=== PATIENT | male | born 1980 | race Hispanic/Latino ===

== ENCOUNTER 2017-07-25 08:44 | Emergency (ER) | payer MEDICAID ==
[~2017-07-25 08:44] MED LIST: DOXY100C2 PO; GLIP10TA9 PO; METF500T6 PO
== END 2017-07-25 09:18 | disposition home or self-care (01) ==
LOC: EDH 08:44
DX: R05 Cough (principal); E11.9 Type 2 diabetes mellitus without complications; I10 Essential (primary) hypertension; Z79.4 Long term (current) use of insulin; Z89.421 Acquired absence of other right toe(s)
CPT/HCPCS: 99281

== ENCOUNTER 2018-01-05 10:49 | Emergency (ER) | payer MEDICAID ==
[2018-01-05] MEDS ORDERED: DEXTROSE 50%-WATER 50 ML DISP.SYRIN IV ONE ×2 (11:14→11:52)
[2018-01-05] MEDS ORDERED: LIDOCAINE/PRILOCAINE CREAM 5GM TUBE TP ONE (12:14)
[2018-01-05] MEDS ORDERED: HYDROCODONE/ACETAMINOPHEN 10/325 MG TAB ONE (12:38)
[2018-01-05] MEDS ORDERED: FLUCONAZOLE 100 MG TAB ONE (14:26)
== END 2018-01-05 14:35 | disposition home or self-care (01) ==
LOC: EDH 10:49
DX: N48.1 Balanitis (principal); N47.2 Paraphimosis; I10 Essential (primary) hypertension; E11.9 Type 2 diabetes mellitus without complications
CPT/HCPCS: 96374; 99284; J3490; J7070 ×2

== ENCOUNTER 2019-05-09 20:47 | Inpatient (IN) | payer MEDICAID ==
[~2019-05-09] VITALS: Ht 180.3 cm; Wt 140.0 kg
[~2019-05-09 20:47] MED LIST changes: +METF-444 PO; -METF500T6 PO
[2019-05-09] MEDS ORDERED: IBUPROFEN 600 MG TABLET ONE (21:13)
[2019-05-09] MEDS ORDERED: SODIUM CHLORIDE 0.9% 1000ML 1,000 ML IV ONE (21:44)
[2019-05-09 21:48] LABS: BASOPHILS % (AUTO) 0.7 % (0.0-5.0); EOSINOPHILS % (AUTO) 3.1 % (0.0-8.0); HEMATOCRIT 45.1 % (42-54); LYMPHOCYTES % (AUTO) 17.8 % (21.0-51.0); MEAN CORPUSCULAR HEMOGLOBIN 30.6 pg (27.0-33.0); MEAN CORPUSCULAR HGB CONC 34.3 g/dL (32.0-36.0); MEAN CORPUSCULAR VOLUME 89.3 fL (79-99); MONOCYTES % (AUTO) 10.7 % (3.0-13.0); NEUTROPHILS % (AUTO) 67.7 % (40.0-77.0); PLATELET COUNT (AUTO) 134 K/uL (130-400); RED BLOOD CELL COUNT(AUTO) 5.05 MIL/uL (4.50-6.20); RED CELL DISTRIBUTION WIDTH 13.2 % (11.0-15.5); WHITE BLOOD COUNT (AUTO) 7.8 K/uL (4.8-10.8)
[2019-05-09 22:01] LABS: INR 0.95 (0.85-1.15); PARTIAL THROMBOPLASTIN TIME 26.8 SEC (26.3-35.5)
[2019-05-09 22:02] LABS: CREATININE 1.2 mg/dL (0.5-1.5); POTASSIUM 4.3 mmol/L (3.5-5.1)
[2019-05-09 22:06] LABS: ALBUMIN 3.4 g/dL (3.5-5.0); BILIRUBIN,TOTAL 0.4 mg/dL (0.2-1.0); CRP QUANTITATIVE 17.7 mg/L (0.00-9.0); TOTAL PROTEIN, SERUM 7.3 g/dL (6.0-8.3)
[2019-05-09 22:51] LABS: ERYTHROCYTE SEDIMENTATION RATE 13 MM/HR (0-15)
[2019-05-09] MEDS ORDERED: VANCOMYCIN 1GM+NS 250ML 250 ML IV SCH (23:00)
[2019-05-09 23:09] LABS: APPEARANCE,URINE Clear (CLEAR); BILIRUBIN,URINE Negative (NEGATIVE); COLOR,URINE Yellow (YELLOW); GLUCOSE, URINE (UA) >=1000 mg/dL (NEGATIVE); KETONES,URINE Negative (NEGATIVE); LEUKOCYTE ESTERASE ,URINE Negative (NEGATIVE); NITRATE,URINE Negative (NEGATIVE); OCCULT BLOOD,URINE Trace (NEGATIVE); PROTEIN,URINE Negative (NEGATIVE)
[2019-05-09] MEDS ORDERED: VANCOMYCIN 1GM+NS 250ML 250 ML IV ONE (23:11)
[2019-05-09 23:22] LABS: BACTERIA,URINE None Seen /HPF (None Seen); RBC,URINE None Seen /HPF (0-1); WBC,URINE None Seen /HPF (0-1)
[2019-05-10] MEDS ORDERED: GLUCAGON 1MG KIT 1 MG ML IM PRN (00:45)
[2019-05-10] MEDS ORDERED: ZOSYN 3.375GM+NS 50ML 50 ML IV SCH (00:45)
[2019-05-10] MEDS ORDERED: ONDANSETRON ODT 4 MG TAB PO PRN (00:45)
[2019-05-10] MEDS ORDERED: ACETAMINOPHEN 325 MG TAB PO PRN (00:45)
[2019-05-10] MEDS ORDERED: VANCOMYCIN PROTOCOL PER PHARMACY IV SCH (00:45)
[2019-05-10] MEDS ORDERED: DEXTROSE 50%-WATER 50 ML DISP.SYRIN IV PRN (00:45)
[2019-05-10] MEDS ORDERED: VANCOMYCIN 1GM+NS 250ML 250 ML IV SCH (01:00)
[2019-05-10] MEDS ORDERED: INSULIN HUMULIN R 100 UNIT/ML 3ML ONE (02:23)
[2019-05-10 02:53] VITALS: BP 158/93
[2019-05-10 04:35] LABS: HEMATOCRIT 40.8 % (42-54); MEAN CORPUSCULAR HEMOGLOBIN 31.1 pg (27.0-33.0); MEAN CORPUSCULAR HGB CONC 34.6 g/dL (32.0-36.0); PLATELET COUNT (AUTO) 106 K/uL (130-400); RED BLOOD CELL COUNT(AUTO) 4.53 MIL/uL (4.50-6.20); RED CELL DISTRIBUTION WIDTH 13.1 % (11.0-15.5); WHITE BLOOD COUNT (AUTO) 7.6 K/uL (4.8-10.8)
[2019-05-10 04:49] LABS: CREATININE 1.1 mg/dL (0.5-1.5); MAGNESIUM 1.9 mg/dL (1.80-2.40); POTASSIUM 3.8 mmol/L (3.5-5.1)
[2019-05-10] MEDS: INSULIN R PO SS1 SQ SCH ×3 (07:36→17:58)
[2019-05-10 07:39] VITALS: BP 133/81
[2019-05-10] MEDS ORDERED: COMPOUND IV REFRIGERATED 1 EACH IVSOLN MISC PRN (07:45)
--- NOTE | 2019-05-10 08:21 | NUR ---
Reviewed contraindications for MRI with contrast. Consent reviewed and signed. Per patient, has had MRI done before, no reactions to contrast noted.
[2019-05-10] MEDS ORDERED: GADODIAMIDE 10 MMOL/20 ML VIAL IV ONE (09:09)
[2019-05-10] MEDS: VANCOMYCIN 2 GM in SODIUM CHLORIDE 0.9% 500ML 500 ML IV SCH ×2 (10:34→22:37)
[2019-05-10 12:00] VITALS: BP 158/98
--- NOTE | 2019-05-10 13:30 | NUR ---
Notified [facility] of wound care consult for Rt foot
[2019-05-10] MEDS: ZOSYN 3.375GM+NS 50ML 50 ML IV SCH ×2 (15:06→22:36)
--- NOTE | 2019-05-10 15:14 | NUR ---
[facility] CONSULT PATIENT ASSESSED REQUESTED: PATIENT PRESENTS WITH DIABETIC FOOT ULCER TO RIGHT 4TH TOE, AND VENOUS ULCER TO LEFT LEG MEDIAL; [facility] RECOMMENDATIONS SUBMITTED. Addendum: 05/10/19 at 1516 by RAYSA DORSEY LVN LVN W Amended: Links added.
[2019-05-10 16:00] VITALS: BP 142/84
--- NOTE | 2019-05-10 17:05 | NUR ---
INITIAL MET W PATIENT FOR DC PLANNING, ALONE, AAOX3, LIVES W [facility] WHO WILL PROVIDE TRANSPORT HOME; PT IS INDP, DDRIVES, NO DME, SEES [facility] FOSTER, PMD, HAS BEEN DISABLED SECOND TO DM DCP IS HOME; WILL AWAIT DC PLANNING RE: POSS NEED FOR IV ABX. IF WOUND CARE NEEDED WILL ANTICIPATE NEED TO TEACH FAMILY. DCP HOME Addendum: 05/11/19 at 1741 by JARET ALVES RN Amended: Links added.
[2019-05-10 20:00] VITALS: BP 143/92
[2019-05-11] VITALS (27 sets, daily range): BP systolic 99–170; BP diastolic 65–95
[2019-05-11] MEDS: INSULIN R PO SS1 SQ SCH ×5 (00:06→21:11)
[2019-05-11] MEDS: ZOSYN 3.375GM+NS 50ML 50 ML IV SCH ×3 (04:13→21:13)
[2019-05-11] MEDS ORDERED: LIDOCAINE HCL 1% 20 ML VIAL ONE (12:05)
[2019-05-11] MEDS ORDERED: BUPIVACAINE/PF 0.5% 30ML VIAL ONE (12:05)
[2019-05-11] MEDS ORDERED: SODIUM CHLORIDE 0.9% 1000ML 1,000 ML IV ONE (12:42)
[2019-05-11] MEDS ORDERED: MIDAZOLAM HCL 1 MG/ML 2ML VIAL ONE (13:13)
[2019-05-11] MEDS ORDERED: FENTANYL CITRATE PF 50 MCG/1 ML 2ML VIAL ONE (13:14)
[2019-05-11] MEDS ORDERED: PROPOFOL 10 MG/ML 20ML VIAL IV ONE (13:14)
[2019-05-11] MEDS: VANCOMYCIN 1.75 GM in SODIUM CHLORIDE 0.9% 250 ML IV SCH ×2 (17:31→21:13)
[2019-05-11] MEDS: HYDROMORPHONE HCL 0.5 MG/0.5 ML ML IVP PRN (21:14)
[2019-05-12 03:57] VITALS: BP 140/77
[2019-05-12] MEDS: ZOSYN 3.375GM+NS 50ML 50 ML IV SCH ×2 (05:01→12:16)
[2019-05-12] MEDS: VANCOMYCIN 1.75 GM in SODIUM CHLORIDE 0.9% 250 ML IV SCH ×2 (05:02→13:58)
[2019-05-12] MEDS: MORPHINE SULFATE 2 MG/ML 1ML SYG IVP PRN ×2 (05:10→17:51)
[2019-05-12] MEDS: INSULIN R PO SS1 SQ SCH ×4 (06:11→21:04)
[2019-05-12 07:30] VITALS: BP 134/77
[2019-05-12] MEDS: HYDROMORPHONE HCL 0.5 MG/0.5 ML ML IVP PRN ×3 (09:08→21:04)
[2019-05-12 11:00] VITALS: BP 150/98
[2019-05-12 16:00] VITALS: BP 146/91
[2019-05-12] MEDS: CEFAZOLIN SODIUM 1 GM VIAL IVP SCH ×2 (17:02→23:16)
[2019-05-12 19:20] VITALS: BP 158/84
--- NOTE | 2019-05-12 23:55 | NUR ---
DR. Mccann rounded: Seen and examined pt. Dr. Mccann did the wound care. Customer Service Manager took a photo of the wound and attached to chart. No new orders given.
[2019-05-13] VITALS: BP 155/87
[2019-05-13 04:00] VITALS: BP 124/83
[2019-05-13] MEDS: CEFAZOLIN SODIUM 1 GM VIAL IVP SCH ×3 (06:25→23:03)
[2019-05-13] MEDS: INSULIN R PO SS1 SQ SCH ×4 (06:29→21:35)
[2019-05-13 07:52] VITALS: BP 152/100
[2019-05-13] MEDS: HYDROMORPHONE HCL 0.5 MG/0.5 ML ML IVP PRN ×4 (08:55→20:18)
[2019-05-13 11:00] VITALS: BP 142/90
[2019-05-13 15:50] VITALS: BP 122/67
[2019-05-13 20:06] VITALS: BP 147/87
[2019-05-14 00:07] VITALS: BP 159/95
[2019-05-14 04:00] VITALS: BP 132/73
[2019-05-14 04:58] LABS: MEAN CORPUSCULAR HEMOGLOBIN 30.2 pg (27.0-33.0); MEAN CORPUSCULAR HGB CONC 33.7 g/dL (32.0-36.0); MEAN CORPUSCULAR VOLUME 89.7 fL (79-99); NUCLEATED RED BLOOD CELLS 0.1 % (0.0-0.19); PLATELET COUNT (AUTO) 129 K/uL (130-400); RED BLOOD CELL COUNT(AUTO) 4.68 MIL/uL (4.50-6.20); WHITE BLOOD COUNT (AUTO) 5.7 K/uL (4.8-10.8)
--- NOTE | 2019-05-14 05:00 | NUR ---
DR. DAVILA ROUNDED: Seen and examined pt. Wound care done and dressing changed. No new orders given.
[2019-05-14] MEDS: HYDROMORPHONE HCL 0.5 MG/0.5 ML ML IVP PRN ×2 (05:22→09:28)
[2019-05-14 05:43] LABS: ALBUMIN 2.9 g/dL (3.5-5.0); BILIRUBIN,TOTAL 0.4 mg/dL (0.2-1.0); CREATININE 0.9 mg/dL (0.5-1.5); POTASSIUM 4.3 mmol/L (3.5-5.1); TOTAL PROTEIN, SERUM 6.7 g/dL (6.0-8.3)
[2019-05-14] MEDS: CEFAZOLIN SODIUM 1 GM VIAL IVP SCH ×2 (06:23→15:55)
[2019-05-14] MEDS: INSULIN R PO SS1 SQ SCH ×3 (06:24→16:11)
[2019-05-14 07:54] VITALS: BP 126/83
[2019-05-14 11:58] VITALS: BP 147/95
--- NOTE | 2019-05-14 15:24 | NUR ---
RD NOTIFICATION Dx: Diabetic Wound and Cellulitis to Right foot. Hx: DM, HTN, Obesity. Diet: 75gmCCD. S/P toe amputation. No edema noted, pt with right foot ulcer/ cellulitis, toe amputation. PO intake 100% and has good appetite as per pt. LBM: 05/13. Pt stated he follows DM diet at home and is on a weight loss diet regimen. Pt has lost 43# in the past two months with diet changes and increasing physical activity. Pt is familiar with foods to avoid/ recommended for his DM condition. 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 RD provided DM diet and nutrition education. Pt verbalized understanding. Education materials provided. RD recommend continue current diet, Add Morro BID to diet order. Recommend 220mg Zinc Sulfate once daily for 14 days and 500mg Vitamin C twice daily to aid in wound healing. RD provided DM diet and nutrition medical nutrition therapy. Materials provided. RD will follow up as needed. Thank you. Gisella Johnson MS, RDN Addendum: 05/14/19 at [address] RD Amended: Links added.
--- NOTE | 2019-05-14 15:25 | NUR ---
DIET EDUCATION Pt stated he follows DM diet at home and is on a weight loss diet regimen. Pt has lost 43# in the past two months with diet changes and increasing physical activity. Pt is familiar with foods to avoid/ recommended for his DM condition. 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 MARY ELLEN provided DM diet and nutrition education. Pt verbalized understanding. Education materials provided. Addendum: 05/14/19 at [address] RD Amended: Links added.
[2019-05-14 16:00] VITALS: BP 152/62
--- NOTE | 2019-05-14 18:25 | NUR ---
PATIENT GIVEN DISCHARGE INSTRUCTIONS AND VERBALIZED UNDERSTANDING , IV REMOVED WITH CATHETER INTACT PRESSURE HELD ON SITE THEN SITE DRESSED, REVIEWED FOLLOW-UP APPOINTMENTS TIME AND DATES,INSTRUCTED PATIENT ON WOUND DRESSED AND SUPPLIES GIVEN FOR DRESSING CHANGES DAILY AND PRN. NO QUESTIONS OR CONCERNS AT THIS TIME, PATIENT ASKING TO WALK DOWN TO LOBBY WITH STAFF ( REFUSED WHEELCHAIR) PATIENT LEFT FOR HOME
== END 2019-05-14 18:20 | disposition home or self-care (01) | DRG 305 ==
LOC: EDH 20:47 → EDHIP 20:48 → OBSVTOIN 20:48 → 3AH 05-10 02:14
PROVIDERS: ADMIT Internal Medicine Infectious Disease; ATTEND Internal Medicine Infectious Disease
PROC: 0Y6M0ZD Detachment at Right Foot, Partial 4th Ray, Open Approach (ICD-10-PCS; principal; 2019-05-11 13:21)
DX: E11.69 Type 2 diabetes mellitus with other specified complication (principal); E11.51 Type 2 diabetes mellitus with diabetic peripheral angiopathy without gangrene; M86.8X7 Other osteomyelitis, ankle and foot; L03.115 Cellulitis of right lower limb; L97.519 Non-pressure chronic ulcer of other part of right foot with unspecified severity; B95.4 Other streptococcus as the cause of diseases classified elsewhere; E11.621 Type 2 diabetes mellitus with foot ulcer; E11.622 Type 2 diabetes mellitus with other skin ulcer; E66.01 Morbid (severe) obesity due to excess calories; E78.5 Hyperlipidemia, unspecified; I10 Essential (primary) hypertension; L02.611 Cutaneous abscess of right foot; B95.61 Methicillin susceptible Staphylococcus aureus infection as the cause of diseases classified elsewhere; Z68.41 Body mass index [BMI] 40.0-44.9, adult; Z83.3 Family history of diabetes mellitus
CPT/HCPCS: 36415; 71045; 73660; 73720; 80048; 80053; 80202; 81001; 82948; 83735; 85025; 85027; 85610; 85651; 85730; 86140; 87040; 87070; 87076; 87077; 87186; 87205; 88304; 88311; 93926; 93971; 97039; A9579; G0378; J0690; J1170; J1815; J2250; J2543; J2704; J3010; J3370; J3490; J7030; J7040

== ENCOUNTER 2020-05-01 16:32 | Emergency (ER) | payer MEDICAID | END 2020-05-01 19:13 | disposition home or self-care (01) | LOC: EDH 16:32 | DX: K59.00 Constipation, unspecified (principal); E11.9 Type 2 diabetes mellitus without complications; I10 Essential (primary) hypertension; Z72.0 Tobacco use; Z79.899 Other long term (current) drug therapy | CPT/HCPCS: 36415; 74176; 83690 ==

== ENCOUNTER 2021-04-14 17:37 | Inpatient (IN) | payer MEDICAID ==
[~2021-04-14] VITALS: Ht 180.3 cm; Wt 117.9 kg
[~2021-04-14 17:37] MED LIST changes: +CEFU500T67 PO; -DOXY100C2 PO; -GLIP10TA9 PO; +GLIP2.5T2 PO; -METF-444 PO; +SEMA1PEN3 SQ
[2021-04-14 18:34] LABS: BASOPHILS % (AUTO) 0.5 % (0.0-5.0); EOSINOPHILS % (AUTO) 3.3 % (0.0-8.0); HEMATOCRIT 42.3 % (42-54); MEAN CORPUSCULAR HEMOGLOBIN 29.7 pg (27.0-33.0); MEAN CORPUSCULAR HGB CONC 34.5 g/dL (32.0-36.0); MEAN CORPUSCULAR VOLUME 86.2 fL (79-99); MONOCYTES % (AUTO) 8.1 % (3.0-13.0); PLATELET COUNT (AUTO) 145 K/uL (130-400); RED BLOOD CELL COUNT(AUTO) 4.91 MIL/uL (4.50-6.20); RED CELL DISTRIBUTION WIDTH 12.7 % (11.0-15.5); WHITE BLOOD COUNT (AUTO) 8.4 K/uL (4.8-10.8)
[2021-04-14 18:50] LABS: CREATININE 1.1 mg/dL (0.5-1.5); POTASSIUM 3.9 mmol/L (3.5-5.1)
[2021-04-14 18:54] LABS: ALBUMIN 3.6 g/dL (3.5-5.0); BILIRUBIN,TOTAL 0.4 mg/dL (0.2-1.0); TOTAL PROTEIN, SERUM 7.8 g/dL (6.0-8.3)
[2021-04-14] MEDS ORDERED: CLINDAMYCIN IVPB 600MG/50ML 50 ML IV SCH (20:00)
[2021-04-14] MEDS ORDERED: INSULIN HUMULIN R 100 UNIT/ML 3ML IV ONE (20:00)
[2021-04-14] MEDS: 0.9%NACL 1000ML 1,000 ML IV SCH (20:35)
[2021-04-14] MEDS ORDERED: VANCOMYCIN 1.5GM/NS 250ML IV SCH ×2 (21:00)
[2021-04-14] MEDS ORDERED: INSULIN R PO SS1 SQ SCH (21:00)
[2021-04-14] MEDS ORDERED: COMPOUND IV REFRIGERATED 1 EACH IVSOLN MISC PRN (21:00)
[2021-04-14] MEDS ORDERED: ONDANSETRON 4MG TABLET PO PRN (21:00)
[2021-04-14] MEDS ORDERED: ACETAMINOPHEN 325 MG TAB PO PRN (21:00)
[2021-04-14] MEDS ORDERED: VANCOMYCIN PROTOCOL PER PHARMACY IV SCH (21:00)
[2021-04-14] MEDS: CEFEPIME HCL 1 GM VIAL IVP SCH (21:49)
[2021-04-15] MEDS: 0.9%NACL 1000ML 1,000 ML IV SCH (02:40)
[2021-04-15] MEDS: CEFEPIME HCL 1 GM VIAL IVP SCH (04:51)
[2021-04-15 07:25] LABS: MEAN CORPUSCULAR HEMOGLOBIN 29.7 pg (27.0-33.0); MEAN CORPUSCULAR HGB CONC 34.1 g/dL (32.0-36.0); MEAN CORPUSCULAR VOLUME 86.9 fL (79-99); RED BLOOD CELL COUNT(AUTO) 4.72 MIL/uL (4.50-6.20); RED CELL DISTRIBUTION WIDTH 12.7 % (11.0-15.5); WHITE BLOOD COUNT (AUTO) 7.4 K/uL (4.8-10.8)
[2021-04-15 07:33] LABS: CREATININE 0.9 mg/dL (0.5-1.5); MAGNESIUM 2.2 mg/dL (1.80-2.40); POTASSIUM 4.1 mmol/L (3.5-5.1)
[2021-04-15 08:44] VITALS: BP 110/60
[2021-04-21] MEDS ORDERED: **HM** OZEMPIC 0.25MG SQ SCH (09:00)
== END 2021-04-15 09:30 | disposition left against medical advice (07) | DRG 380 ==
LOC: EDH 17:37 → EDHIP 17:38 → UNDOADMIN 20:11 → 3CH 04-15 09:12
PROVIDERS: ADMIT Internal Medicine Infectious Disease; ATTEND Internal Medicine Infectious Disease
DX: E11.621 Type 2 diabetes mellitus with foot ulcer (principal); L97.529 Non-pressure chronic ulcer of other part of left foot with unspecified severity; L97.519 Non-pressure chronic ulcer of other part of right foot with unspecified severity; E66.9 Obesity, unspecified; Z68.36 Body mass index [BMI] 36.0-36.9, adult; Z89.421 Acquired absence of other right toe(s)
CPT/HCPCS: 36415; 73630; 80048; 80053; 82948; 83036; 83605; 83735; 85025; 85027; 87040; G0378; J0692; J1815; J3370; J3490; J7030; J7050

== ENCOUNTER 2025-02-09 16:00 | Inpatient (IN) | payer SELFPAY ==
[~2025-02-09] VITALS: Ht 180.3 cm; Wt 125.0 kg
[~2025-02-09 16:00] MED LIST changes: -CEFU500T67 PO; -GLIP2.5T2 PO
--- NOTE | 2025-02-09 16:41 | ERN ---
General Chief Complaint: Toe Pain/Injury Stated Complaint: TOE INFECTION AFTER SURGERY Time Seen by MD: 16:03 Source: patient History of Present Illness Initial Comments Mr. Lovett is a 44-year-old male patient, brought in by EMS from his residence with symptoms of fever chills, and foul-smelling drainage from his left foot. Patient had a surgery on his left foot with amputation of his toes for diabetic foot ulcers last week. Patient was discharged home with levofloxacin amoxicillin and codeine. Patient reports taking the medication as scheduled, however noticed increasingly foul smelling discharge from his left foot. Patient has been noticing frequent chills and sweating for the last 3 days. Patient denies pain at the site of the wound. Patient has a temperature of 100.4 and a blood sugar of 382mg/dl when tested by the EMS. Patient only takes Ozempic once a week. Allergies: Coded Allergies: No Known Drug Allergies (Verified Allergy, Unknown, 01/23/25) Home Meds Reported Medications Semaglutide (Ozempic) 1 Mg/0.75 Ml Pen.injctr, 0.25 MG SQ QWEEK 12/15/20 Past Medical History Past Medical History: Diabetes-Type II Past Surgical History: Other Surgical History Other: 2 TOES FROM RIGHT FOOT REMOVED ROS Dictation CONSTITUTIONAL: No chills, no fever, no weakness, no diaphoresis, no malaise. HEAD/FACE: No signs of trauma. EENT: No eye pain, no blurred vision, no tearing, no double vision, no ear p ain, no ear discharge, no nose pain, no nasal congestion, no throat pain, no throat swelling, no mouth pain. RESPIRATORY: No cough, no SOB, no orthopnea, no PND, no wheezing. CARDIOVASCULAR: No chest pain, no edema, no palpitations, no syncope. GASTROINTESTINAL/ABDOMINAL: No abdominal pain, no constipation, no diarrhea, no nausea, no vomiting. GENITOURINARY: No abnormal discharge, no dysuria, no frequent urination, no hematuria. No complaints of pain in the genitals. MUSCULOSKELETAL: No back pain, no gout, no joint pain, no joint swelling, no muscle pain, no muscle stiffness, no neck pain. INTEGUMENTARY: No change in color, no change in hair/nails, no dryness, no lesion, no lumps, no rash. Foul smelling wound on the left foot. NEUROLOGICAL/PSYCH: No anxiety, not depressed, no emotional problem, no headache, no numbness, no pre-existing deficit, no history of seizures, no tremors, no weakness. HEMATOLOGIC/LYMPHATIC: Not anemic, no history of blood clots, no apparent bleeding, no bruising, glands not swollen. All Systems Negative, Except as Noted. Physical Exam Physical Exam Dictation VITAL SIGNS: Reviewed. GENERAL APPEARANCE: Alert, oriented x3 HEAD AND FACE: Non-traumatic. EYES: PERRL, pink conjunctivas, eyelid no trauma, anterior chamber clear. EARS: Pinnas intact and no signs of trauma or erythema. Ear canals clear and no discharge. TMs no erythema. NOSE: No discharge, no bleeding. OROPHARYNX: Mouth normal, teeth no caries, tongue pink. Pharynx clear, no erythema. Tonsils no exudates, no abscesses noted. Mucous membrane moist. NECK: Supple, non-tender, no thyromegaly, no masses, no JVD, no bruits. BREAST: Deferred. CHEST: No tenderness, no crepitus, no paradoxical movement, no retractions. LUNGS: Clear, well-ventilated, symmetric, no rales, no wheezing, no rhonchi, no stridor, good breath sounds bilaterally. HEART: Regular rate, regular rhythm, no murmur, no gallops. VASCULAR: No peripheral edema. ABDOMEN: Soft, positive bowel sounds, nondistended, no guarding, nontender, no rebound, no masses no hepatomegaly, no splenomegaly, no Silva's sign, no hernias. RECTAL: Deferred. GENITAL: Deferred. NEUROLOGICAL: Normal speech, gross motor function intact, gross sensory function intact. MUSCULOSKELETAL: Neck nontender, full range of motion, back nontender, full range of motion. EXTREMITIES: Nontender, full range of motion. SKIN: Color pink, dry, no turgor, no rash, no lacerations, no abrasions, no contusions. LYMPHATICS: Deferred. Results Laboratory and Microbiology Lab and Micro Result MDM Chief complaint: Foul smelling drainage from left foot post surgery, fever and chills since 3 days. No pain. Past medical history: Diabetic foot ulcer, S/P amputation of left foot toes last week. Vitals: Mostly stable, except for a temp of 100.4 F Review of systems: Fever, chills, and increasing drainage from the left foot after surgery. Physical Exam: Mostly unremarkable except for foul smelling drainage from the left foot. Labs: Labs are consistent with acute infection, CRP 101, Glucose 345. Imaging: Status post midfoot/forefoot amputation with edema and emphysema at the amputation site. Differential diagnosis: Infected foot post surgery, diabetic foot infection Assessment and Plan: Patient has foul smelling discharge from left foot after surgery last week. His CRP and ESR are elevated. X-ray showed edema at the amputation site. Patient was given Iv fluids, Zosyn, and vancomycin.\ Patient will be admitted to the Inpatient floor for management of infected wound post amputation. ED Course DX & DISP Disposition: Inpatient Departure Impression: Primary Impression: Infection of toe as complication of amputation Additional Impression: Diabetic foot infection Condition: Stable Referrals: DARYA DAVILA DPGraciela I performed a substantive portion of the visit. I have reviewed and personally made and approve the management plan that is documented in the notes by myself with JEAN/resident. I acknowledged full responsibility for the patient's management plan. JOSE DOUGLAS MD Feb 09, 2025 16:40 TRE BUENO DO Feb 10, 2025 09:28
[2025-02-09 17:10] LABS: IMMATURE GRANULOCYTE ABSOLUTE 0.04 K/uL (0-1); NUCLEATED RED BLOOD CELLS 0.0 % (0.0-0.19); PLATELET COUNT (AUTO) 354 K/uL (130-400); RED BLOOD CELL COUNT(AUTO) 3.60 MIL/uL (4.50-6.20); RED CELL DISTRIBUTION WIDTH 11.9 % (11.0-15.5); WHITE BLOOD COUNT (AUTO) 9.8 K/uL (4.8-10.8)
[2025-02-09 17:23] LABS: CREATININE 1.3 mg/dL (0.5-1.3); GLOMERULAR FILTR. RATE CALC 69.0 mL/min (>90); GLUCOSE,RANDOM 345.0 mg/dL (70-105); SODIUM SERUM 131.0 mmol/L (136-145); UREA NITROGEN, BLOOD 19.0 mg/dL (7-18)
--- NOTE | 2025-02-09 17:46 | HMCIMG ---
EXAM: CR Left foot, 2 View. CLINICAL HISTORY: Draining wound S/P Diabetic toe amputation COMPARISON: None provided. FINDINGS: Amputation of the midfoot/forefoot from the medial cuneiform and proximal 2nd through 5th metatarsals. There is edema and emphysema at the amputation site. Joint spaces are anatomically aligned. IMPRESSION: 1. Status post midfoot/forefoot amputation with edema and emphysema at the amputation site. /[place]
[2025-02-09 18:17] LABS: ERYTHROCYTE SEDIMENTATION RATE 126 MM/HR (0-15)
--- NOTE | 2025-02-09 18:20 | HP ---
History of Present Illness Reason for Visit: foot pain History of Present Illness Ms. Lovett is a 44-year-old male that was seen and examined today on 02/09/2025. Patient is a good historian of personal health Patient came to emergency department with a chief complaint of left foot wound. Onset was 01/30/2025. Location is left foot TMA surgical incision. Duration is constant. Character is described as foul-smelling and draining. There was no alleviating factors. Symptoms are aggravated with walking. Patient reports associated fever and chills. Today in the emergency department CBC unremarkable, glucose 345 mg/dL, no urinalysis has been collected or sent to lab, left foot x-ray shows left foot emphysema and edema. Emergency room physician recommended patient be admitted with a diagnosis of left foot wound. Past Medical History Patient History: Family history: Hypertension MOTHER Stroke FATHER ADDITIONAL PAST MEDICAL HISTORY: [Diabetes mellitius type2 hypertension, obesity, foot osteomyelitis, left foot osteomyelitis] SOCIAL HISTORY: [Negative for smoking, alcohol use, drug use. Patient is employed full-time as a recycler forklift driver truck driver. Patient is typically independent of his ADLs. Patient denies difficulty pain is bills.] SURGICAL HISTORY: [Left foot two, three, four, 5th ray amputation , right foot 4th and 5th toe amputation, left foot TMA on 01/30/2025 Review of Systems General: Fever, Chills; No Night Sweats, No Fatigue, No Malaise, No Appetite, No Other HEENT: No Head Aches, No Visual Changes, No Eye Pain, No Ear Pain, No Dysphasia, No Sinus Congestion, No Post Nasal Drip, No Sore Throat, No Other Pulmonary: No Dyspnea, No Cough, No Pleuritic Chest Pain, No Other Cardiovascular: No: Chest Pain, Palpitations, Orthopnea, Paroxysmal Noc. Dyspnea, Edema, Lt Headedness, Other Gastrointestinal: No: Nausea, Vomiting, Abdominal Pain, Diarrhea, Constipation, Melena, Hematochezia, Other Genitourinary: No Dysuria, No Frequency, No Incontinence, No Hematuria, No Retention, No Other Musculoskeletal: foot pain; No: other, neck pain, shoulder pain, arm pain, back pain, hand pain, leg pain Skin: No Urticaria, No Rash; Other (Left foot wound) Neurological: No: Weakness, Numbness, Incoordination, Change in speech, Confusion, Seizures, Other Allergies: Coded Allergies: No Known Drug Allergies (Verified Allergy, Unknown, 01/23/25) Scheduled Semaglutide (Ozempic), 0.25 MG SQ QWEEK, (Reported) Exam Vital Signs Vital Signs Date Time Temp Pulse Resp B/P (MAP) Pulse Ox O2 Delivery O2 Flow Rate FiO2 02/09/25 16:40 100.4 95 18 125/63 95 Room Air* 0 21 General Appearance: Alert, Oriented X3, Cooperative, mild distress HEENT: Atraumatic, EOMI Respiratory: Clear to auscultation, Normal air movement, NL respiratory effort Cardiovascular: Regular rate, Regular rhythm, Normal S1, Normal S2 Abdominal: Normal bowel sounds, Soft, No tenderness Extremities: Other (Positive left foot edema) Skin: Other (Positive left foot wound) Neuro: Normal speech, Strength at 5/5 X4 ext, Sensation intact, Cranial nerves 3-12 NL Psych/Mental Status: Mental status NL, Mood NL, Thoughts/Content NL Assessment/Plan ASSESSMENT: [ Left foot wound, POA Ten days postop status post TMA on 01/30/2025 Uncontrolled Diabetes mellitius type2, POA Hypertension] PLAN: [ Admit patient to medical floor as inpatient status. Place patient on telemetry monitoring. Left foot wound: Patient will be followed by his tooling mechanic, Dr. Mccann Empiric antibiotic therapy with vancomycin, Zosyn, clindamycin Check aerobic and anaerobic cultures of left foot wound Diabetes mellitus type 2: Check hemoglobin A1c in a.m. Glucometer checks a.c. and HS 1800 ADA diet Humulin R sliding scale Hypertension: At time of admission home medications have been reconciled. Consider resuming home medications once they have been reconciled. For now: Hydralazine 10 mg IV every 4 hours for systolic blood pressure greater than 160 mmHg GI prophylaxis, famotidine DVT prophylaxis, Izaiah's and SCDs avoid anticoagulation at this time due to impending Podiatry evaluation. ADVANCED CARE PLANNING 1. Which of the following were discussed? Hospice Care - Yes Therapeutic options - yes Advance Directives - Yes - patient states that he does not have any advance directives in place at this time , patient states his daughter, Tish Lovett can make decisions for him if he becomes unable. Other discussions - patient wishes to remain a full code 2. Discussed with who? Patient 3. Voluntary nature of this service was explained to the patient? Yes 4. Amount of time spent - ___16 minutes____ 5. Reviewed by Physician? (if this service was performed by NPP) Yes This document was generated in part using voice recognition software, occasional wrong word or sound alike substitutions may have occurred due to the inherent limitations of voice recognition software. Read the chart carefully and recognize using context, where the substitutions have occurred. Although every effort was made to edit the content, resource analyst and typing errors may occur ATTESTATION BY PHYSICIAN I have seen and examined the patient. I reviewed the documentation, medical decision making, and treatment plan as noted by the mid-level provider above. I agree with the findings and plan of care.] ROSS MADERA [facility] Feb 09, 2025 18:20
[2025-02-09] MEDS: VANCOMYCIN KIT 1 GM/250 ML IV.KIT IV ONE (18:41)
[2025-02-09] MEDS: LACTATED RINGERS 1000ML 1,000 ML IV SCH (18:41)
[2025-02-09] MEDS: ZOSYN 3.375GM +NS 50ML IV ONE (18:41)
[2025-02-09] MEDS ORDERED: VANCOMYCIN PROTOCOL PER PHARMACY IV SCH (20:30)
[2025-02-09] MEDS: CLINDAMYCIN IVPB 900MG/50ML IV ONE (20:52)
[2025-02-09 21:10] LABS: APPEARANCE,URINE CLEAR (CLEAR); GLUCOSE, URINE (UA) >=1000 mg/dL (NEGATIVE); LEUKOCYTE ESTERASE ,URINE NEGATIVE Leu/uL (NEGATIVE); NITRATE,URINE NEGATIVE (NEGATIVE); OCCULT BLOOD,URINE MODERATE (NEGATIVE)
[2025-02-09 21:12] LABS: ADD UA MICROSCOPIC YES
[2025-02-09 21:14] LABS: SQUAMOUS EPITHELIAL CELL,UR RARE /HPF (0-2)
[2025-02-10] MEDS: ZOSYN 3.375GM +NS 50ML IV SCH (01:16)
[2025-02-10] MEDS: VANCOMYCIN 1.25 GM/250 ML BAG 250 ML IV SCH (05:26)
--- NOTE | 2025-02-10 07:15 | CONS ---
HISTORY OF PRESENT ILLNESS: The patient is a very pleasant 44-year-old diabetic male status post transmetatarsal amputation to his foot on the left times approximately 3 weeks. He has presented with fevers. He presented with purulent drainage from the surgical site. He had been on oral antibiotics per Infectious Disease. He states it was giving him GI intolerance, but he continued to take them. He has not followed up with me as an outpatient. He has not followed up with Infectious Disease. He came to the emergency room complaining of foul smelling drainage from his left foot wound. Blood sugar 354. He does not have a primary care physician as an outpatient. X-rays showed gas in the soft tissue. PAST MEDICAL HISTORY: Uncontrolled diabetes, obesity, polymicrobial wound infection to the left foot, status post multiple left foot surgeries, left foot osteomyelitis. PAST SURGICAL HISTORY: Transmetatarsal amputation of the left foot, 01/30/2025. REVIEW OF SYSTEMS: CONSTITUTIONAL: Having no chills, no fevers, no night sweats. GASTROINTESTINAL: No nausea or vomiting. No diarrhea. HEENT: No problems with his eyes, ears, nose or throat. CARDIOVASCULAR: He has no peripheral vascular disease. No coronary artery disease. PSYCHIATRIC: Denies any depression. MUSCULOSKELETAL: Transmetatarsal amputation on the left. INTEGUMENTARY: He has purulent drainage from the medial flap of his transmetatarsal amputation on the left. PHYSICAL EXAMINATION: VITAL SIGNS: T-max 97.9, pulse 84, respirations 16, blood pressure 136/78. EXTREMITIES: His examination today shows he has palpable pedal pulses. Projective sensation is absent. He has incision site coapted from his transmetatarsal amputation on the left. He has a medial flap. He has a lateral flap. The medial flap is necrotic. There is foul smelling, purulent drainage. There is necrosis of the soft tissues. LABORATORY DATA: White count 9.8, H and H of 10.6 and 32.1, platelets 354. ASSESSMENT: Ulcer abscess, cellulitis, rule out osteomyelitis, history of polymicrobial wound infection, uncontrolled diabetes. PLAN: With the patient's consent, I blocked the left foot with 10 mL of 1% lidocaine plain. I performed a sharp excisional debridement. I debrided slough, fibrin, foul smelling, liquefaction, and hemorrhagic necrosis of the subcutaneous tissues, tendon and musculature in an area that measured post debridement 5 x 5 cm for a total area of sharp excisional debridement of 25 cm where there was exposed bone in the wound bed. Deep cultures were taken. There was a large amount of purulent drainage and foul smelling, liquefaction, and hemorrhage necrosis of the subcutaneous tissues. There was necrotic tendon in the wound bed and necrotic muscle in the wound bed. There was exposed bone. Cultures were taken. The wound was packed with peroxide soaked QuikClot, and a Betadine dressing was applied. We will consult Dr. Espinosa, Infectious Disease. We will order an MRI of the left foot to rule out osteomyelitis. We will continue to follow the patient closely while in house. The patient is currently receiving the IV vancomycin, IV Zosyn. We will make the patient nonweightbearing status on that left foot. TID: [id number] RECEIPT: [id number]
[2025-02-10 07:45] LABS: IMMATURE GRANULOCYTE ABSOLUTE 0.04 K/uL (0-1); NUCLEATED RED BLOOD CELLS 0.0 % (0.0-0.19); PLATELET COUNT (AUTO) 323 K/uL (130-400); RED BLOOD CELL COUNT(AUTO) 3.24 MIL/uL (4.50-6.20); RED CELL DISTRIBUTION WIDTH 12.0 % (11.0-15.5); WHITE BLOOD COUNT (AUTO) 7.3 K/uL (4.8-10.8)
[2025-02-10 07:58] LABS: CREATININE 1.0 mg/dL (0.5-1.3); GLOMERULAR FILTR. RATE CALC 95.0 mL/min (>90); GLUCOSE,RANDOM 244.0 mg/dL (70-105); PHOSPHORUS 3.0 mg/dL (2.5-4.9); SODIUM SERUM 132.0 mmol/L (136-145); UREA NITROGEN, BLOOD 16.0 mg/dL (7-18)
[2025-02-10 08:00] VITALS: BP 133/73; PULSE 78; RESP 15; TEMP 98.7
[2025-02-10] MEDS: FAMOTIDINE 20MG TAB PO SCH (10:12)
--- NOTE | 2025-02-10 11:34 | PN ---
[facility] PROGRESS NOTE Date of Service: Feb 10, 2025 Time of Service: 10:00 SUBJECTIVE: 44-year-old male with the medical history of Osteomyelitis status post amputation 2nd 3rd and 4th digits left foot on 01/28/2025 ,S/p Left TMA on 01/30/2025, diabetes mellitus, peripheral artery disease, hypertension presented to the ED on 02/09/25 with chief complaint of fever and draining wound at the surgical site for last 2 days. He also feel pain in his left foot and the discharge is foul-smelling. According to the patient he had wound on his left foot with polymicrobial infections and osteomyelitis for which he had wound debridement and transmetatarsal amputation at [facility]. He was discharged on 02/01/2025 with antibiotics and follow up to podiatry and Infectious Disease which was scheduled for today as per him. But he started having draining wound at the surgical site and fever for which he visited hospital. He has a long history of diabetes mellitus for which he only takes Ozempic. He was advised for home insulin which he denied. He was also advised for aspirin 81 mg daily and Xarelto 2.5 mg b.i.d. by the cardiology during admission for his peripheral artery disease which he said he is not taking. 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 He said he consumes alcohol occasionally. In ED, his blood pressure is 125/63, pulse 95, temperature 100.4, SpO2 98% on room air. Pertinent labs are WBC 11.6, ESR 126, CRP 101.3, procalcitonin 0.10, HbA1c 10.7, glucose 254, sodium 134, creatinine 1.2 Lactic acid 1.4. X-ray of left foot revealed status post midfoot/forefoot amputation with edema and emphysema at the amputation site. In the ED he received vancomycin, clindamycin, Zosyn and started on LR at 150 mL/hour. Podiatry and Infectious Disease was consulted. He was admitted for further evaluation and management of infected wound. 02/10/2025-patient was evaluated this morning. He complained of moderate pain in his left foot. He is hemodynamically stable. The pertinent lab this morning hemoglobin 9.6, ESR 126, sodium 132, creatinine 1 , blood glucose 232, HbA1c 10.7, procalcitonin 0.10. He is started on vancomycin and Zosyn. He got the wound debridement in ED. culture from the debridement of the wound was sent. MRI of the left foot was ordered. Infectious Disease and Podiatry on the board. Plan as discussed below. REVIEW OF SYSTEMS CONSTITUTIONAL: He reported febrile at home and was waiting NEUROLOGICAL: Denies headache, amaurosis fugax, motor weakness, sensory deficit, CARDIOVASCULAR: Denies any exertional angina, dyspnea on exertion, PULMONARY: Denies any shortness of breath, cough, phlegm/sputum, hemoptysis, pl euritic chest pain. SLEEP: Denies morning headaches, daytime somnolence or napping. GASTROINTESTINAL: Denies any type of dysphagia to either liquids or solids. GENITOURINARY: Denies frequency, urgency, nocturia, hematuria or incontinence (Storage/Irritative symptoms.) ENDOCRINOLOGIC: Denies polyuria, polydipsia, polyphagia or heat/cold intolerances. HEMATOLOGIC: Denies thrombophilia/previous clots, or coagulopathy/bleeding disorders. ONCOLOGIC: Denies personal history of malignancy. DERMATOLOGIC: Wound on his left foot PHYSICAL EXAM GENERAL APPEARANCE: The patient is awake, alert, and oriented, in no acute cardiopulmonary distress. NEUROLOGICAL: Cranial nerves II-XII grossly intact. Motor is 5/5 in bilateral upper and lower extremities proximal to distal. No sensory deficits. HEENT: Face is symmetric. Pupils are equal and reactive. Extraocular movements are intact. NECK: Supple. No JVD. No thyromegaly. No submental, submandibular, pre- /postauricular, occipital or supraclavicular lymphadenopathy. CHEST: Normal chest expansion. No Telemetry. LUNGS: Absence of any rales, rhonchi or any wheezing. CARDIOVASCULAR: Regular. S1 and S2 normal. No appreciable rubs, murmurs or gallops. ABDOMEN: Soft, nontender, and nondistended. There is no rebound, voluntary guarding, or rigidity. : Deferred. No Lawson. EXTREMITIES: He has incision site coapted from his transmetatarsal amputation on the left. He has a medial flap. He has a lateral flap. The medial flap is necrotic. There is foul smelling, purulent drainage. There is necrosis of the soft tissues. SKIN: No skin breakdown. Vital Signs (last 8hr) Date Time Temp Pulse Resp B/P (MAP) Pulse Ox O2 Delivery O2 Flow Rate FiO2 02/10/25 02:56 72 16 130/75 98 Room Air* 0 21 LABS: Laboratory: Test 02/10/25 07:19 02/10/25 06:25 02/09/25 20:38 02/09/25 20:34 Range/Units White Blood Count 7.3 # 4.8-10.8 K/uL Red Blood Count 3.24 L 4.50-6.20 MIL/uL Hemoglobin 9.6 L 14.0-18.0 g/dL Hematocrit 28.8 L 42-54 % Mean Corpuscular Volume 88.9 79-99 fL Mean Corpuscular Hemoglobin 29.6 27.0-33.0 pg Mean Corpuscular Hemoglobin Concent 33.3 32.0-36.0 g/dL Red Cell Distribution Width 12.0 11.0-15.5 % Platelet Count 323 130-400 K/uL Mean Platelet Volume 11.2 H 7.5-10.5 fL Immature Granulocyte % (Auto) 0.5 0-1 % Neutrophils (%) (Auto) 75.4 40.0-77.0 % Lymphocytes (%) (Auto) 11.7 L 21.0-51.0 % Monocytes (%) (Auto) 8.6 3.0-13.0 % Eosinophils (%) (Auto) 3.1 0.0-8.0 % Basophils (%) (Auto) 0.7 0.0-5.0 % Neutrophils # (Auto) 5.5 1.8-7.7 K/uL Lymphocytes # (Auto) 0.9 L 1.0-4.8 K/uL Monocytes # (Auto) 0.6 0.1-1.0 K/uL Eosinophils # (Auto) 0.23 0.00-0.70 K/uL Basophils # (Auto) 0.05 0.00-0.20 K/uL Absolute Immature Granulocyte (auto 0.04 0-1 K/uL Nucleated Red Blood Cells 0.0 0.0-0.19 % Sodium Level 132 L 136-145 mmol/L Potassium Level 4.0 3.5-5.1 mmol/L Chloride Level 98 L 101-111 mmol/L Carbon Dioxide Level 31 21-32 mmol/L Blood Urea Nitrogen 16 7-18 mg/dL Creatinine 1.0 0.5-1.3 mg/dL Glomerular Filtration Rate Calc 95 >90 mL/min Random Glucose 244 H 70-105 mg/dL Hemoglobin A1c 10.7 H 4.0-6.0 % Estimated Average Glucose (eAG) 260 H 70-126 mg/dL Total Calcium 8.6 8.5-10.1 mg/dL Phosphorus Level 3.0 2.5-4.9 mg/dL Magnesium Level 1.90 1.80-2.40 mg/dL Procalcitonin 0.10 0.05-0.5 ng/mL Whole Blood Glucose 232 H 70-110 MG/DL Lactic Acid Level 1.4 0.8-2.5 mmol/L Urine Color LIGHT-YELLOW YELLOW Urine Appearance CLEAR CLEAR Urine pH 6.0 5.0-8.0 Urine Specific [place] 1.028 1.001-1.031 Urine Protein 50 H NEGATIVE mg/dL Urine Glucose (UA) >=1000 H NEGATIVE mg/dL Urine Ketones NEGATIVE NEGATIVE mg/dL Urine Occult Blood MODERATE H NEGATIVE Urine Nitrate NEGATIVE NEGATIVE Urine Bilirubin NEGATIVE NEGATIVE mg/dL Urine Urobilinogen 0.2 0.2-1.0 mg/dL Urine Leukocyte Esterase NEGATIVE NEGATIVE Sae/uL Urine RBC 2-5 H 0-1 /HPF Urine WBC 2-5 H 0-1 /HPF Urine Squamous Epithelial Cells RARE 0-2 /HPF Urine Bacteria None None Seen /HPF Test 02/09/25 17:03 Range/Units White Cell Morphology Comment See comments Erythrocyte Sedimentation Rate 126 H 0-15 MM/HR C-Reactive Protein, Quantitative 101.30 H 0.5-3.0 mg/L Current Medications Medications (Trade) Dose Ordered Sig/Sana Route PRN Reason Start Time Stop Time Status Last Admin Dose Admin Acetaminophen (TYLenol 325MG TAB) 650 mg Q6H PRN PO TEMPERATURE GREATER THAN 101.5 02/09/25 20:30 03/11/25 20:29 Famotidine (Pepcid 20mg Tab) 20 mg DAILY PO 02/10/25 09:00 03/12/25 08:59 Hydralazine HCl (APRESOLine 20MG INJ) 10 mg Q6H PRN IV For:SBP above 160;DBP above 90 02/09/25 20:30 03/11/25 20:29 Insulin Human Regular (humuLIN R 100 UNIT/ML 3ML) INSULIN SLIDING SCAL... ACHS SQ 7/30/25 21:00 03/11/25 20:59 02/10/25 06:44 8 UNIT Lactated Ringer's 1,000 ml @ 150 mls/hr Q6H40M IV 02/09/25 18:30 03/11/25 18:29 02/10/25 08:14 150 MLS/HR Morphine Sulfate (morPHINE 4MG SYG) 4 mg Q4H PRN IVP SEVERE PAIN (7-10) 02/09/25 20:30 02/16/25 20:29 02/10/25 05:31 4 MG Ondansetron HCl (zoFRAN 4MG INJ) 4 mg Q6H PRN IV NAUSEA/VOMITING 02/09/25 20:30 03/11/25 20:29 Piperacillin Sod/ Tazobactam Sod (Zosyn 3.375gm+NS 50ml) 3.375 gm Q8H IV 02/10/25 02:00 02/20/25 01:59 02/10/25 01:16 3.375 GM Vancomycin HCl 250 ml @ 125 mls/hr Q12H IV 02/10/25 06:00 02/20/25 05:59 02/10/25 05:26 125 MLS/HR Vancomycin HCl (Vancomycin Protocol) 1 each AD IV 02/09/25 20:30 02/23/25 20:29 DIAGNOSTICS / RADIOLOGY: PATIENT: KILLIAN FOSTER MR#: [id number] : 1980 SEX: M AGE: 44 LOCATION: [facility] ORDER 21 STATUS: REG ER REPORT#: [id number] SERVICE [id number] REASON: Draining wound S/P Diabetic toe amputation ORDERING PHYSICIAN: JOSE DOUGLAS MD PROCEDURE: FT 2VW LT - FOOT LIMITED 2VWS LT EXAM: CR Left foot, 2 View. CLINICAL HISTORY: Draining wound S/P Diabetic toe amputation COMPARISON: None provided. FINDINGS: Amputation of the midfoot/forefoot from the medial cuneiform and proximal 2nd through 5th metatarsals. There is edema and emphysema at the amputation site. Joint spaces are anatomically aligned. IMPRESSION: 1. Status post midfoot/forefoot amputation with edema and emphysema at the amputation site. /Aldie DICTATED BY: CAMILO MERA Jr., MD DATE: 02/09/251844 ELECTRONICALLY SIGNED BY: CAMILO MERA Jr., MD DATE: 02/09/251844 ASSESSMENT: Left foot wound/ history of polymicrobial wound infection Status post TMA on Uncontrolled Diabetes mellitius type 2 Acute kidney injury Peripheral artery disease Hypertension PLAN: Admit patient to medical floor as inpatient status. Place patient on telemetry monitoring. Left foot wound/history of polymicrobial wound infection Rule out osteomyelitis -WBC 9.8, CRP 101.30, ESR 120, procalcitonin 0.10, lactic acid 1.4. X-ray left foot revealed edema and emphysema at the amputation site -podiatry was consulted. Got debridement and wound culture sent today -started on Zosyn and vancomycin -we will follow-up ID for optimizing antibiotics -we will get MRI to rule out osteomyelitis. Uncontrolled Diabetes mellitus type 2: -HbA1c 10.7 Glucose 232, he uses Ozempic as a home medication for diabetes -On 1800 ADA diet -Humulin R sliding scale -Glucometer checks a.c. and HS Acute kidney injury -Creatinine on admission 1.3 Which trended down to 1 this morning. On LR 150 mL/hour. -JAN likely due to prerenal cause Peripheral artery disease -He was evaluated before and prescribed a krferbd42 mg daily and Eliquis 2.5 mg b.i.d. He is not taking these medication -Holding for now for possible surgical intervention Hypertension: -Hydralazine 10 mg IV every 4 hours for systolic blood pressure greater than 160 mmHg GI prophylaxis, famotidine DVT prophylaxis, Izaiah's and SCDs avoid anticoagulation at this time due to impending Podiatry evaluation. ATTESTATION BY PHYSICIAN I have seen and examined the patient. I reviewed the documentation, medical decision making, and treatment plan as noted by the resident provider above. I agree with the findings and plan of care. Lenny Singh MD, SUNIL MD Feb 10, 2025 11:34
--- NOTE | 2025-02-10 12:14 | NUR ---
DCP:HOME Pt currently lives with gf/sps in their home. Pt states that he uses a wheelchair and cane to ambulate. Pt does not have a provider or home health. Pt's sps assists him with all ADLs. PCP is Dr. Bony Soria and uses [facility] [place] for any RX needs. At [place] pt will want to go home and family can assist with transportation. Addendum: 02/10/25 at 1216 by PHILLIP SOTELO SS Amended: Links added.
--- NOTE | 2025-02-10 13:55 | NUR ---
GAVE REPORT TO JACLYN ZAMAN.
[2025-02-10 14:00] VITALS: BP 139/77; PULSE 86; RESP 17; TEMP 98.2
[2025-02-10 14:15] VITALS: BP 136/79; PULSE 86; RESP 21; TEMP 98.6
--- NOTE | 2025-02-10 14:15 | NUR ---
RECEIVED PATIENTF FROM ER PATIENT TRANSFERRED TO ROOM. PATIENT WAS ORIENTATED TO ROOM, WITH BED SET TO LOWEST POSITION. NO O2 WAS NEEDED.FLUIDS WERE STARTED ANSWERED ANY QUESTIONS AND CONCERNS PATIENT HAD. BEDSIDE TABLE WAS MOVED NEAR PATIENT. CALL LIGHT WITHIN REACH
--- NOTE | 2025-02-10 14:21 | HMCIMG ---
EXAM: MR Left Foot WITHOUT CONTRAST CLINICAL HISTORY: Left foot gas gangrene. TECHNIQUE: Multiplanar multisequence magnetic resonance images were obtained WITHOUT contrast. CONTRAST: None COMPARISON: MRI left foot 01/24/2025. FINDINGS: JOINTS: Unremarkable. No dislocation or significant effusion. BONE: There is a demonstration of transmetatarsal amputation of the bases of the metatarsals. Extensive bone marrow edema of the bases of the metatarsals and navicular bones is present. The findings may represent residual osteomyelitis of the cuneiform, navicular, and metatarsal bases. The soft tissue defect, and edema of the resected bones are new compared to the prior MRI from 01/24/2025. SOFT TISSUES: Extensive soft tissue edema is seen at the amputation site with a focal defect in the skin and soft tissues. Extensive edema of the muscles seen at the amputation site is consistent with myositis. Extensive surrounding cellulitis is seen at the amputation site. No definite focal fluid collection or abscess is identified. Fluid around the medial and lateral flexor tendons suggests tenosynovitis of the flexor digitorum longus and peroneus brevis and peroneus longus tendons. IMPRESSION: 1. Transmetatarsal amputation of the bases of the metatarsals with extensive soft tissue edema, focal defect, and surrounding cellulitis at the amputation site. No definite focal fluid collection or abscess. 2. Extensive bone marrow edema of the bases of the metatarsals and navicular bones, possibly representing residual osteomyelitis of the cuneiform, navicular, and metatarsal bases. 3. Extensive edema of the muscles at the amputation site, consistent with myositis. 4. Fluid around the medial and lateral flexor tendons, suggesting tenosynovitis of the flexor digitorum longus and peroneus brevis and peroneus longus tendons. 5. The soft tissue defect and edema of the resected bones are new compared to the prior MRI from 01/24/2025. /Kemp
[2025-02-10 20:00] VITALS: BP 128/69; PULSE 77; RESP 20; TEMP 98
[2025-02-10 20:50] VITALS: O2SAT 98
[2025-02-10 23:35] VITALS: BP 152/79; PULSE 85; RESP 20; TEMP 98.3
[2025-02-11] VITALS (8 sets, daily range): BP systolic 131–153; BP diastolic 78–87; PULSE 73–85; RESP 16–21; TEMP 97.9–98.4; O2SAT 98–99
[2025-02-11] MEDS ORDERED: VANCOMYCIN 1.25 GM/250 ML BAG 250 ML IV SCH (06:00)
--- NOTE | 2025-02-11 07:16 | PN ---
SUBJECTIVE: The patient is a very pleasant 44-year-old diabetic Latin-Thai male who presented to the hospital with an abscess, cellulitis and MRI showing osteomyelitis to his transmetatarsal amputation on the left. His cultures are pending. He is currently afebrile with a Tmax of 98.4, pulse 75, respirations 16, blood pressure 131/78. He has a white count of 7.3, H and H of 9.6 and 28.8, neutrophils 75.4. Sedimentation rate 126. He had an MRI. The results of the MRI have shown osteomyelitis to the metatarsal stumps, the navicular and the cuneiforms. The patient is being followed by Dr. Espinosa, Infectious Disease and is currently receiving IV Zosyn and vancomycin. PAST MEDICAL HISTORY: Uncontrolled diabetes, morbid obesity, polymicrobial wound infection to the left foot status post multiple foot surgeries, left foot transmetatarsal amputation now with wound dehiscence and residual osteomyelitis to the metatarsals and tarsals. He had the transmetatarsal amputation on 01/30/2025. REVIEW OF SYSTEMS: CONSTITUTIONAL: No chills. No fevers. No night sweats. GASTROINTESTINAL: No nausea or vomiting. No diarrhea. HEENT: No problems with eyes, ears, nose, or throat. CARDIOVASCULAR: No peripheral vascular disease. No coronary artery disease. PSYCHIATRIC: Denied any depression. MUSCULOSKELETAL: Transmetatarsal amputation on the left. INTEGUMENTARY: He has a wound to the medial flap of the transmetatarsal amputation site. It is measuring 5 cm x 5 cm. It is 3 cm in depth. There is exposed bone of the metatarsals in the wound bed. ASSESSMENT: Ulcer, osteomyelitis, transmetatarsal amputation stump on the right, osteomyelitis involving the metatarsals and tarsal bones, uncontrolled diabetes, morbid obesity, history of polymicrobial wound infection. PLAN: I discussed treatment options with the patient, both conservative and surgical. The patient is a poor candidate for any further foot surgery. His treatment options basically at this point are local wound care and IV antibiotics versus a fufyx-dob-hbyi amputation on that left side. I will discuss the case with Dr. Espinosa, Infectious Disease. The patient would like to pursue local wound care and IV antibiotics. We will continue to follow the patient closely while in-house. TID: [id number] RECEIPT: [id number]
[2025-02-11] MEDS: VANCOMYCIN 1.25 GM/250 ML BAG 250 ML IV SCH (08:26)
--- NOTE | 2025-02-11 21:57 | PN ---
INFECTIOUS DISEASE FOLLOWUP NOTE DATE OF SERVICE: 02/11/2025 SUBJECTIVE: The patient is seen and examined at bedside. No fever, no chills. No nausea, no vomiting, no abdominal pain. Pain to the left foot is well controlled. No bleeding tendency. No rashes are seen. Tolerating antibiotics. PHYSICAL EXAMINATION: VITAL SIGNS: Temperature 98.7. EYES: No icterus. Pupils equal and reactive. HENT: No oral thrush seen. Moist oral mucosa. NECK: Supple. No JVD or thyromegaly. LUNGS: Good air entry. No rales. No rhonchi. CARDIOVASCULAR: S1 and S2 regular. No murmur heard. ABDOMEN: Obese, soft, nontender. Bowel sound is present. CENTRAL NERVOUS SYSTEM: Awake, alert, oriented x 3. No focal deficits. SKIN: No rashes, no itchiness. EXTREMITIES: Status post left foot transmetatarsal amputation. Intact incision. The patient has ____ drainage. LABORATORY DATA: Wound culture growing Gram-positive cocci in chain. ASSESSMENT: A 44-year-old male presenting with left foot pain and fever, current problems include: * Sepsis. * Left foot wound infection. * Cellulitis. * Wounds dehiscence. PLAN: * Continue wound care. * Continue pain management. * Continue Zosyn. * Discontinue vancomycin. * Continue antidiabetic. * Monitor electrolyte. TID: [id number] RECEIPT: [id number]
[2025-02-12] VITALS (7 sets, daily range): BP systolic 130–157; BP diastolic 71–91; PULSE 71–78; RESP 18–20; TEMP 97.7–98.1; O2SAT 98–99
[2025-02-12 06:11] LABS: NUCLEATED RED BLOOD CELLS 0.0 % (0.0-0.19); PLATELET COUNT (AUTO) 276.0 K/uL (130-400); RED BLOOD CELL COUNT(AUTO) 3.11 MIL/uL (4.50-6.20); RED CELL DISTRIBUTION WIDTH 11.9 % (11.0-15.5); WHITE BLOOD COUNT (AUTO) 5.2 K/uL (4.8-10.8)
[2025-02-12 06:20] LABS: CREATININE 0.7 mg/dL (0.5-1.3); GLOMERULAR FILTR. RATE CALC 116.0 mL/min (>90); GLUCOSE,RANDOM 248.0 mg/dL (70-105); SODIUM SERUM 134.0 mmol/L (136-145); UREA NITROGEN, BLOOD 6.0 mg/dL (7-18)
--- NOTE | 2025-02-12 14:21 | PN ---
SUBJECTIVE: The patient is a very pleasant 44-year-old diabetic, Latin-[place] male who is status post debridement of a 5 x 5 cm squared area of necrosis to his plantar flap of his transmetatarsal amputation site medially. He has been afebrile and he has a white count that is within normal limits. He has cultures that have grown back to Enterococcus faecalis and he is receiving IV vancomycin and IV Zosyn. He is remaining afebrile. He has a white count that is 5.2, H and H are 9 and 27.6, platelets 276, glucose 243, potassium 3.9 with a hemoglobin A1c of 10.7. He has been afebrile with a T-max of 97.7, blood pressure 142/83, pulse 79, respirations 18. Wound cultures, Enterococcus faecalis. Blood cultures, no growth x 48 hours. PAST MEDICAL HISTORY: Uncontrolled diabetes, hemoglobin A1c 10.7, morbid obesity, polymicrobial wound infection status post multiple previous foot surgeries, now with a left transmetatarsal amputation site with wound dehiscence of the plantar flap and residual osteomyelitis in the metatarsals and tarsal bones. He had a transmetatarsal amputation on 01/30/2025. REVIEW OF SYSTEMS: CONSTITUTIONAL: Currently no chills, no fevers, no night sweats. No nausea or vomiting. No diarrhea. HEENT: No problems with eyes, ears, nose, or throat. CARDIOVASCULAR: He has no peripheral vascular disease and no coronary artery disease. PSYCHIATRIC: Denied any depression. MUSCULOSKELETAL: Morbid obesity. Transmetatarsal amputation left osteomyelitis to the tarsal and metatarsal stumps. INTEGUMENTARY: Wound to the medial flap of the transmetatarsal amputation measures 5 x 5 x 3 cm. There is exposed bone in the wound bed. ASSESSMENT: Pressure ulcer osteomyelitis, transmetatarsal amputation stump area on the foot on the right, osteomyelitis involving the tarsal and metatarsal bones, uncontrolled diabetes, morbid obesity, history of polymicrobial wound infection. PLAN: I discussed treatment options with the patient, both conservative and surgical. The patient is a very poor candidate for any further foot surgery due to his uncontrolled diabetes, his large body mass, his polymicrobial wound infection and difficulty for plantar flap coverage The patient appears to be doing well. I feel his best option at this point is conservative management with antibiotic therapy per Infectious Disease, strict blood sugar control and local wound care. We will continue to follow the patient closely while in-house. TID: [id number] RECEIPT: [id number] MTDD
[2025-02-12] MEDS: MAGNESIUM 2GM PREMIX 50ML 50 ML IV PRN (15:28)
--- NOTE | 2025-02-12 23:25 | PN ---
INFECTIOUS DISEASE PROGRESS NOTE Date of Service: Feb 12, 2025 SUBJECTIVE: This is a 44-year-old male patient who was seen and examined at bedside in room 331. Patient is awake, alert and oriented x3. Patient is sitting up to the bedside chair in no distress. No fever this morning, temperature 97.7. The preliminary left foot wound culture results is growing Enterococcus faecalis. The left foot MRI showed extensive bone marrow edema of the bases of the metatarsals and navicular bones, possibly representing residual osteomyelitis. We will continue on Zosyn IV every 8 hours. PHYSICAL EXAM EYES: Anicteric. Pupils equal and reactive. HENT: No oral thrush seen, moist Oral mucosa NECK: Supple, no JVD or thyromegaly. LUNGS: Good air entry. No rales, no rhonchi. CARDIOVASCULAR: S1, S2 regular. No murmur heard. ABDOMEN: Soft, non tender, bowel sounds present, no organomegaly. CENTRAL NERVOUS SYSTEM: Awake, alert, oriented x 3. SKIN: No rashes, no swelling. LYMPHATICS: No peripheral lymphadenopathy MUSCULOSKELETAL: No joint swelling, erythema or tenderness. EXTREMITIES: No cyanosis or clubbing. Left foot TMA. BACK: No deformity, no pressure ulcer. GENITOURINARY: No dysuria or hematuria. Vital Sign (Last 12 Hours) 02/12/25 02/12/25 02/12/25 12:00 16:00 20:00 Temp 97.9 98.1 98.1 Pulse 71 72 77 Resp 20 19 20 B/P (MAP) 130/71 138/79 155/91 Pulse Ox 99 99 98 O2 Delivery Room Air Room Air Room Air Intake & Output (last 24hrs) 02/11/25 02/11/25 02/12/25 15:00 23:00 07:00 Intake Total 50.0 ml Output Total 1400 ml Balance -1350.0 ml LABS: Laboratory: Test 02/12/25 19:30 02/12/25 05:36 Range/Units Whole Blood Glucose 226 H 70-110 MG/DL White Blood Count 5.2 4.8-10.8 K/uL Red Blood Count 3.11 L 4.50-6.20 MIL/uL Hemoglobin 9.0 L 14.0-18.0 g/dL Hematocrit 27.6 L 42-54 % Mean Corpuscular Volume 88.7 79-99 fL Mean Corpuscular Hemoglobin 28.9 27.0-33.0 pg Mean Corpuscular Hemoglobin Concent 32.6 32.0-36.0 g/dL Red Cell Distribution Width 11.9 11.0-15.5 % Platelet Count 276 130-400 K/uL Mean Platelet Volume 11.3 H 7.5-10.5 fL Nucleated Red Blood Cells 0.0 0.0-0.19 % Sodium Level 134 L 136-145 mmol/L Potassium Level 3.9 3.5-5.1 mmol/L Chloride Level 99 L 101-111 mmol/L Carbon Dioxide Level 29 21-32 mmol/L Blood Urea Nitrogen 6 L 7-18 mg/dL Creatinine 0.7 0.5-1.3 mg/dL Glomerular Filtration Rate Calc 116 >90 mL/min Random Glucose 248 H 70-105 mg/dL Total Calcium 8.2 L 8.5-10.1 mg/dL Magnesium Level 1.60 L 1.80-2.40 mg/dL DIAGNOSTICS / RADIOLOGY: PATIENT: KILLIAN FOSTER ACCT: [id number] LOC: [facility] U: [id number] AGE/SX: 44/M ROOM: [facility] RE02/09/[address]: JOHN PAUL REYES MD : 1980 BED: 1 DIS: STATUS: ADM IN TLOC: SPEC: [id number] SUAD: 02/09/25-2039 STATUS: RES REQ: [id number] RECD: 02/09/[address]: ROSS MADERA RED HAT LINUX ADMINISTRATOR SOURCE: FOOT ENTR: 02/09/25-[address] [facility] [address]: DARYA DAVILA DPM SPDESC: FOOT LEFT GARRISON ZAPATA MD, MARITA D ORDERED: YANG CULTURE, AEROBIC CULTURE Procedure Result Amor Date-Time ------- ----- ANAEROBIC CULTURE Preliminary 02/12/25-1108 [facility] DESCRIPTION: REPORT 1: NO ANAEROBES AT 24-35 HOURS; STUDIES TO CONTINUE REPORT 2: NO ANAEROBES AT 48-59 HOURS; STUDIES TO CONTINUE Test(s) performed by: [facility] [address] [place] [address] AEROBIC CULTURE Final 02/12/25-1107 [facility] DESCRIPTION: REPORT 1: 2+ SKIN THERESA ; STUDIES TO CONTINUE GRAM POSITIVE RODS RESEMBLING DIPHTHEROIDS 2+ GRAM POSITIVE COCCI IN CHAINS POSSIBLE ENTEROCOCCUS SPECIES IDENTIFICATION AND SENSITIVITY TO FOLLOW REPORT 2: NO FURTHER WORK-UP DONE ENTEROCOCCUS FAECALIS E FAECALIS M.I.C. RX --------- ---- AMPICILLIN <=2 S VANCOMYCIN 1 S GENTAMICIN Synergy Screen <=500 S PENICILLIN 2 S ASSESSMENT: Left foot TMA wound infection with Enterococcus faecalis Left foot TMA wound dehiscence. Left foot osteomyelitis. Cellulitis Poorly controlled Diabetes mellitus. PLAN: Continue Zosyn. Continue GI prophylaxis. Continue wound care as recommended by title curator. Continue antidiabetics. Continue pain management. This case was reviewed and discussed with my supervising physician and the above assessment and plan was formulated and agreed upon. ATTESTATION BY PHYSICIAN I have seen and examined the patient. I reviewed the documentation, medical decision making, and treatment plan as noted by the mid-level provider above. I agree with the findings and plan of care. JOHN PAUL REYES MD, MIRTA L RED HAT LINUX ADMINISTRATOR Feb 12, 2025 23:25
[2025-02-13] VITALS: BP 149/80; PULSE 76; RESP 20; TEMP 98.1
[2025-02-13 04:00] VITALS: BP 150/76; PULSE 76; RESP 20; TEMP 98.1
[2025-02-13 08:00] VITALS: BP 138/87; PULSE 87; RESP 19; TEMP 97.9
[2025-02-13 09:06] VITALS: O2SAT 97
--- NOTE | 2025-02-13 11:27 | PN ---
SUBJECTIVE: The patient is a very pleasant 44-year-old diabetic male status post transmetatarsal amputation done on 01/30/2025. He is status post debridement of demarcated necrosis from the medial aspect of his plantar flap of the transmetatarsal amputation on the left. He has currently been afebrile 97.9, pulse 87, respirations 19, blood pressure 138/87, white count 5.2, H and H 9 and 27.6, platelets 276. 185. BUN and creatinine 6 and 0.7. Potassium 3.9, hemoglobin A1c of 10.7. The patient is being followed for Enterococcus faecalis infection, receiving IV Zosyn per infectious disease. Blood cultures no growth x 3 days. PAST MEDICAL HISTORY: Uncontrolled diabetes, hemoglobin A1c 10.7, morbid obesity, polymicrobial wound infection, status post multiple previous foot surgeries, now with left transmetatarsal amputation of wound dehiscence, status post debridement of the plantar flap medially, residual osteomyelitis of the metatarsals and tarsal bones. Previous transmetatarsal amputation on 01/30/2025. REVIEW OF SYSTEMS: CONSTITUTIONAL: No chills. No fevers. No night sweats. GASTROINTESTINAL: No nausea or vomiting. No diarrhea. HEENT: No problems with eyes, ears, nose, or throat. CARDIOVASCULAR: No peripheral vascular disease and no coronary artery disease. PSYCHIATRIC: Denied any depression. MUSCULOSKELETAL: Morbid obesity. Transmetatarsal amputation left. Osteomyelitis of the tarsal and tarsal bones on the left. INTEGUMENTARY: Wound to the medial flap of the transmetatarsal amputation on the left 5 x 5 x 3 cm. There is now no exposed bone in the wound bed. ASSESSMENT: Ulcer osteomyelitis, transmetatarsal amputation stump on the right, osteomyelitis involving the tarsal and metatarsal bones. He has uncontrolled diabetes, morbid obesity, history of antimicrobial wound infection, receiving IV Zosyn. Per cultures have grown back to Enterococcus faecalis. PLAN: I discussed treatment options with the patient above conservative surgery. He is a very poor candidate for any further foot surgery due to his uncontrolled diabetes, his large body mass, his polymicrobial wound infection, his difficulty for any further flap coverage of any further surgical intervention due to his demarcating necrosis of his plantar flap. The patient appears to be doing well clinically and I do feel his best option at this point is conservative management with antibiotics, currently receiving the IV Zosyn per infectious disease to treat his osteomyelitis, strict blood sugar control, and local wound care. Nonweightbearing status on that right foot. For my staff, beginning of discharge with antibiotics per infectious disease. Local wound care with Betadine dressings daily. Nonweightbearing status on the right foot. Follow the patient up as an outpatient. TID: [id number] RECEIPT: [id number]
[2025-02-13 12:00] VITALS: BP 129/71; PULSE 73; RESP 19; TEMP 98.3
--- NOTE | 2025-02-13 13:18 | DS ---
Discharge Summary DIAGNOSE(S): left foot TMA wound infection and dehiscence with enterococcus faecalis HOSPITAL COURSE SUMMARY: Patient was brought to ER for evaluation of left TMA foot wound. During stay patient was evaluated by concrete polisher and recommendations were given. Debridement was done at bedside and cultures were obtained. He was started on IV Zosyn while in hospital and will be discharge with oral antibiotics for two weeks. He will follow up with concrete polisher as out patient with wound care orders. JEWELRY TECHNICIAN(S): Podiatry (Dr. Mccann) PROCEDURE(S)/TREATMENT(S): Debridement at bedside. PROBLEM(S): Left foot TMA wound infection with Enterococcus faecalis Left foot TMA wound dehiscence. Left foot osteomyelitis. Cellulitis Poorly controlled Diabetes mellitus. FOLLOW-UP TEST(S): N/A DISCHARGE INSTRUCTIONS: Amoxicillin PO for two weeks follow up with Dr Mccann follow up with PCP This case has been discussed with my supervised physician Dr. Espinosa. Home Meds Reported Medications Semaglutide (Ozempic) 1 Mg/0.75 Ml Pen.injctr, 0.25 MG SQ QWEEK 12/15/20 [facility] Feb 13, 2025 13:18
--- NOTE | 2025-02-13 14:53 | NUR ---
DISCHARGE BOTH PIV DC'D PATIENT INFORMED TO CALL PRIMARY CARE PROVIDER TOMORROW DUE TO OFFICE CLOSED TODAY PATIENT INFORMED TO CALL OFFICE TOMORROW TO SCHEDULE FOR APPOINTMENT IN 2 WEEKS DUE TO OFFICE CLOSED TODAY PATIENT GIVEN PRESCRIPTION FOR AMOXICILLIN TID FOR 14 DAYS PRIOR TO DISCHARGE PATIENTS QUESTIONS ANSWERED PRIOR TO DISCHARGE
== END 2025-02-13 15:50 | disposition home or self-care (01) | DRG 862 ==
LOC: EDH 16:00 → EDHIP 16:01 → 3AH 02-10 14:09
PROVIDERS: ADMIT Internal Medicine Infectious Disease; ATTEND Internal Medicine Infectious Disease
DX: T81.49XA Infection following a procedure, other surgical site, initial encounter (principal); A41.9 Sepsis, unspecified organism; L03.116 Cellulitis of left lower limb; E11.65 Type 2 diabetes mellitus with hyperglycemia; E11.69 Type 2 diabetes mellitus with other specified complication; T87.81 Dehiscence of amputation stump; E66.01 Morbid (severe) obesity due to excess calories; I10 Essential (primary) hypertension; B95.2 Enterococcus as the cause of diseases classified elsewhere; E11.621 Type 2 diabetes mellitus with foot ulcer; E11.628 Type 2 diabetes mellitus with other skin complications; Y83.5 Amputation of limb(s) as the cause of abnormal reaction of the patient, or of later complication, without mention of misadventure at the time of the procedure; Z51.5 Encounter for palliative care; Z82.3 Family history of stroke; Z82.49 Family history of ischemic heart disease and other diseases of the circulatory system; Z89.439 Acquired absence of unspecified foot; Z68.38 Body mass index [BMI] 38.0-38.9, adult
CPT/HCPCS: 36415; 73620; 73718; 80048; 81001; 82948; 83036; 83605; 83735; 84100; 84145; 85025; 85027; 85651; 86140; 87040; 87070; 87076; 87086; 87186; 96374; 96375; 99285; G0378; J1815; J2270; J2543; J3373; J3475; J3490; J7120; J3370

== ENCOUNTER → 2025-04-28 | Outpatient (CLI) | payer OTHER ==
--- NOTE | 2025-05-04 16:23 | HMCIMG ---
CR LUMBAR SPINE, 3 VIEW Clinical History: Back pain Comparison: None provided. Findings: Bones: No acute fracture or aggressive appearing osseous lesion is identified. Anterior wedging of the T11 and T12 vertebral bodies is noted with loss of height up to 30%. Mild retropulsion is present at this level. Mild degenerative changes are noted with anterior marginal osteophytes involving the lumbar vertebral bodies. Alignment: Grade I anterior spondylolisthesis of L4 over L5 is present. Overall spinal alignment is otherwise within normal limits. No significant scoliosis is observed. Discs / Degenerative Changes: There is mild degenerative lumbar spondylosis. The disc spaces are preserved without significant narrowing. Soft Tissues: The soft tissues are unremarkable. IMPRESSION: 1. No acute osseous injury. 2. Anterior wedging of T11 and T12 vertebral bodies with up to 30% height loss and mild retropulsion. 3. Grade I anterior spondylolisthesis of L4 over L5. /[place]
== END | disposition home or self-care (01) ==
LOC: RAH 14:50
PROVIDERS: ATTEND Internal Medicine
DX: M48.54XA Collapsed vertebra, not elsewhere classified, thoracic region, initial encounter for fracture (principal); M47.816 Spondylosis without myelopathy or radiculopathy, lumbar region; M43.16 Spondylolisthesis, lumbar region; M25.78 Osteophyte, vertebrae; M54.50 Low back pain, unspecified
CPT/HCPCS: 72100